=== PATIENT | male | born 1990 ===

== ENCOUNTER 2017-10-19 18:36 | Inpatient (IN) | payer MEDICAID, OTHER ==
[2017-10-19 19:05] VITALS: BMI 25.4
[2017-10-19] MEDS ORDERED: Oxycodone/Acetaminophen 5/325 mg Tab PO STA (19:49)
--- NOTE | 2017-10-19 20:08 | ED PDOC ---
Arrival/HPI - General Chief Complaint: Headache Time Seen by Provider: 10/19/17 19:21 Historian: Patient - History of Present Illness Narrative History of Present Illness (Text): 10/19/17 20:05 26 year old male, with no significant past medical history, who presents to the emergency department complaining of intermittent headache and discomfort at the top and front of the head for 1 week. Patient notes occasional dizziness. Patient denies any fever, chills, chest pain, shortness of breath, nausea, vomiting, diarrhea, urinary symptoms, back pain, neck pain, trauma/injury, or any other complaints. Time/Duration: 1 week Symptom Onset: Gradual Symptom Course: Intermittent Activities at Onset: Light Context: Home Past Medical History - Provider Review Nursing Documentation Reviewed: Yes - Cardiac Hx Cardiac Disorders: No - Pulmonary Hx Respiratory Disorders: No - Neurological Hx Neurological Disorder: No - HEENT Hx HEENT Disorder: No - Renal Hx Renal Disorder: No - Endocrine/Metabolic Hx Endocrine Disorders: No - Hematological/Oncological Hx Blood Disorders: No - Integumentary Hx Dermatological Disorder: No - Musculoskeletal/Rheumatological Hx Musculoskeletal Disorders: No - Gastrointestinal Hx Gastrointestinal Disorders: No - Genitourinary/Gynecological Hx Genitourinary Disorders: No - Psychiatric Hx Psychophysiologic Disorder: No Hx Substance Use: No Family/Social History - Physician Review Nursing Documentation Reviewed: Yes Family/Social History: Unknown Family HX Smoking Status: Never Smoked Hx Alcohol Use: No Hx Substance Use: No Allergies/Home Meds Allergies/Adverse Reactions: Allergies No Known Allergies Allergy (Verified 10/19/17 19:05) Home Medications: Home Meds Medication Instructions Recorded Confirmed No Known Home Med 10/19/17 10/19/17 Review of Systems - Physician Review All systems were reviewed & negative as marked: Yes - Review of Systems Constitutional: Normal Eyes: Normal ENT: Normal Respiratory: Normal. absent: SOB, Cough Cardiovascular: Normal. absent: Chest Pain Gastrointestinal: Normal. absent: Abdominal Pain, Diarrhea, Nausea, Vomiting Genitourinary Male: Normal. absent: Dysuria, Frequency, Hematuria, Urinary Output Changes Musculoskeletal: Normal. absent: Back Pain, Neck Pain Skin: Normal. absent: Rash Neurological: Headache, Dizziness Endocrine: Normal Hemo/Lymphatic: Normal Psychiatric: Normal Physical Exam Vital Signs Reviewed: Yes Vital Signs Temp Pulse Resp BP Pulse Ox 10/20/17 00:13 68 18 139/67 100 10/19/17 21:58 65 18 128/63 97 10/19/17 19:06 98.8 F 72 18 128/65 98 Temperature: Afebrile Blood Pressure: Normal Pulse: Regular Respiratory Rate: Normal Appearance: Positive for: Well-Appearing, Non-Toxic, Comfortable Pain Distress: None Mental Status: Positive for: Alert and Oriented X 3 - Systems Exam Head: Present: Atraumatic, Normocephalic Pupils: Present: PERRL Extroacular Muscles: Present: EOMI Conjunctiva: Present: Normal Mouth: Present: Moist Mucous Membranes Neck: Present: Normal Range of Motion. No: Meningeal Signs, MIDLINE TENDERNESS Respiratory/Chest: Present: Clear to Auscultation, Good Air Exchange. No: Respiratory Distress, Accessory Muscle Use Cardiovascular: Present: Regular Rate and Rhythm, Normal S1, S2. No: Murmurs Abdomen: No: Tenderness, Distention, Peritoneal Signs Back: Present: Normal Inspection. No: CVA Tenderness, Midline Tenderness, Paraspinal Tenderness Upper Extremity: Present: Normal Inspection. No: Cyanosis, Edema Lower Extremity: Present: Normal Inspection. No: Edema, CALF TENDERNESS Neurological: Present: GCS=15, CN II-XII Intact, Speech Normal, Motor Func Grossly Intact, Normal Sensory Function Skin: Present: Warm, Dry, Normal Color. No: Rashes Psychiatric: Present: Alert, Oriented x 3, Normal Insight, Normal Concentration Medical Decision Making ED Course and Treatment: 10/19/17 20:09 Impression: 26 year old male who presents to the emergency department complaining of intermittent headaches and discomfort for 1 week. Plan: -- CT Head -- Percocet -- Reassess and disposition Progress Notes: 10/19/17 21:58 CT Head shows: Brain and ventricles: There is a 3 x 4 x 2.7 cm cystic mass in the right cerebellum. There may be a small mural nodule. There is mass effect on the fourth ventricle with partial effacement of the fourth ventricle. There is mass effect with mild effacement of the quadrigeminal plate cistern.. No lesions are seen in the cerebellum on the left. Lateral and third ventricles are mildly prominent. There is prominence of temporal horns.. There is no supratentorial midline shift. There are no focal hemorrhages. Matthews-white differentiation is maintained Bones: Cranial vault is intact. Soft tissues: unremarkable Sinuses: There is sinusitis. Ears and mastoids: Middle ears and mastoids are unremarkable. Orbits: Orbital contents are unremarkable. 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 MRI without and with contrast suggested for more complete evaluation. EKG, Labs, and Chest X-ray ordered. 10/19/17 23:[address] Vera, who is aware and agrees with plan. Accepts pt in to hospitalist service. [facility] for brain tumor and vertigo. resident engineer notified. 10/19/17 23:15 EKG reviewed, NSR at [address]-segment elevations or depressions, no T-wave inversions, normal intervals. - Lab Interpretations Lab Results: 10/19/17 22:12 10/19/17 22:12 Lab Results 10/19/17 22:12: PT 11.2, INR 0.98, APTT 28.0 10/19/17 22:12: WBC 9.1, RBC 4.97, Hgb 15.8, Hct 44.1, MCV 88.7, MCH 31.8, MCHC 35.8, RDW 12.2, Plt Count 269, MPV 10.7 10/19/17 22:12: Sodium 143, Potassium 3.7, Chloride 104, Carbon Dioxide 26, Anion Gap 16, BUN 20, Creatinine 0.9, Est GFR ( Amer) > 60, Est GFR (Non- Af Amer) > 60, Random Glucose 110, Calcium 9.6, Total Bilirubin 0.3, AST 37, ALT 23, Alkaline Phosphatase 87, Total Protein 7.7, Albumin 4.8, Globulin 2.8, Albumin/Globulin Ratio 1.7 I have reviewed the lab results: Yes - RAD Interpretation Radiology Orders: 10/19/17 19:36 HEAD W/O CONTRAST [CT] Stat 10/19/17 21:58 CHEST PORTABLE [RAD] Stat Quality Compliance Coordinator: Radiologist - EKG Interpretation Interpreted by ED Physician: Yes Type: 12 lead EKG - Medication Orders Current Medication Orders: Acetaminophen (Tylenol 325mg Tab) 650 mg PO Q6H PRN PRN Reason: Pain, Mild (1-3) Naproxen (Anaprox Ds) 550 mg PO BID PRN PRN Reason: Pain, moderate (4-7) Ondansetron HCl (Zofran Inj) 4 mg IVP Q4H PRN PRN Reason: Nausea/Vomiting Oxycodone/Acetaminophen (Percocet 2.5/325 Mg Tab) 1 tab PO Q4H PRN PRN Reason: Pain, severe (8-10) Last Admin: 10/20/17 06:04 Dose: 1 tab Pantoprazole Sodium (Protonix Ec Tab) 40 mg PO 0600 CHAVEZ Last Admin: 10/20/17 06:04 Dose: 40 mg Discontinued Medications Oxycodone/Acetaminophen (Percocet 5/325 Mg Tab) 1 tab PO STAT STA Stop: 10/19/17 19:50 Last Admin: 10/19/17 21:00 Dose: 1 tab BANNER Pain Assessment Document 10/19/17 21:00 EQ (Rec: 10/19/17 21:00 EQ [id number]) Pain Reassessment Is this a pain reassessment? No Sleep Is patient sleeping during reassessment? No Presence of Pain Presence of Pain Yes - Scribe Statement The provider has reviewed the documentation as recorded by the Scribe Concetta Cai All medical record entries made by the Scribdequan were at my direction and personally dictated by me. I have reviewed the chart and agree that the record accurately reflects my personal performance of the history, physical exam, medical decision making, and the department course for this patient. I have also personally directed, reviewed, and agree with the discharge instructions and disposition. Disposition/Present on Arrival - Present on Arrival Any Indicators Present on Arrival: No History of DVT/PE: No History of Uncontrolled Diabetes: No Urinary Catheter: No History of Decub. Ulcer: No History Surgical Site Infection Following: None - Disposition Have Diagnosis and Disposition been Completed?: Yes Diagnosis: Cerebellar tumor, Dizziness Disposition: HOSPITALIZED Disposition Time: 23:37 Patient Plan: Admission, Observation Patient Problems: Current Active Problems Problem Status Onset Cerebellar tumor Acute Dizziness Acute Condition: STABLE
--- NOTE | 2017-10-19 21:53 | CT ---
EXAM: CT Head Without Intravenous Contrast EXAM DATE/TIME: 10/19/2017 7:36 PM CLINICAL HISTORY: 26 years old, male; Pain; Headache TECHNIQUE: Axial computed tomography images of the head/brain without intravenous contrast. All CT scans at this facility use one or more dose reduction techniques, viz.: automated exposure control; ma/kV adjustment per patient size (including targeted exams where dose is matched to indication; i.e. head); or iterative reconstruction technique. Coronal and sagittal reformatted images were created and reviewed. COMPARISON: There are no prior studies for comparison. FINDINGS: Brain and ventricles: There is a 3 x 4 x 2.7 cm cystic mass in the right cerebellum. There may be a small mural nodule. There is mass effect on the fourth ventricle with partial effacement of the fourth ventricle. There is mass effect with mild effacement of the quadrigeminal plate cistern.. No lesions are seen in the cerebellum on the left. Lateral and third ventricles are mildly prominent. There is prominence of temporal horns.. There is no supratentorial midline shift. There are no focal hemorrhages. Matthews-white differentiation is maintained Bones: Cranial vault is intact. Soft tissues: unremarkable Sinuses: There is sinusitis. Ears and mastoids: Middle ears and mastoids are unremarkable. Orbits: Orbital contents are unremarkable. 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
[2017-10-19 22:23] LABS: HEMOGLOBIN 15.8 g/dL (14.0-18.0); MEAN CELL VOLUME 88.7 fl (80.0-105.0); MEAN CORPUSCULAR HEMOGLOBIN 31.8 pg (25.0-35.0); MEAN CORPUSCULAR HGB CONC 35.8 g/dl (31.0-37.0); MEAN PLATELET VOLUME 10.7 fl (7.0-11.0); RBC 4.97 10^6/uL (3.5-6.1); RED CELL DISTRIBUTION WIDTH 12.2 % (11.5-14.5); WHITE BLOOD COUNT 9.1 10^3/ul (4.5-11.0)
[2017-10-19 22:32] LABS: ALB/GLOB RATIO 1.7 (1.1-1.8); ALBUMIN 4.8 g/dL (3.0-4.8); ALT/SGPT 23 U/L (7-56); AST/SGOT 37 U/L (17-59); BLOOD UREA NITROGEN 20 mg/dL (7-21); CALCIUM 9.6 mg/dL (8.4-10.5); GFR AFRICAN-AMERICAN > 60; GFR NON-AFRICAN AMERICAN > 60; INR 0.98 (0.93-1.08); PROTHROMBIN TIME 11.2 SECONDS (9.4-12.5)
[2017-10-19] MEDS ORDERED: Naproxen 550 mg Tab PO PRN (23:05)
[2017-10-20] MEDS: Oxycodone/Acetaminophen 2.5/325 mg Tab PO PRN ×3 (00:12→09:53)
--- NOTE | 2017-10-20 00:32 | CP.PCM.HP ---
<AlvarezAnatoliy - Last Filed: 10/20/17 01:44> History of Present Illness - History of Present Illness History of Present Illness: Mr. Brook Avitia is a 26 year old male with no significant past medical history who presents with 15 days of acute worsening of chronic headache symptoms. Patient speaks only armenian and family members at bedside provided translation. Patient reports that he has had headaches intermittently for several years with increasingly frequent episodes over the past several months. Most recently, his headache has been consistently present for the past 15 days with no response to OTC NSAID's. He has never been seen by a physician for these headaches in the past. He describes the headache as dull achy pain that extends from his posterior neck to bilateral frontotemporal regions. He endorses that during the headache he becomes dizzy but denies any LOC, changes in his vision, tinnitus, epistaxis, visual/auditory aura's, N/V or numbness/tingling/weakness of any extremity. He further denies any weight loss, fevers, chills, chest pain, SOB, abdominal pain, diarrhea, constipation, changes in urine output, bowel/bladder incontinence, parasthesias, or any skin lesions. PMH: Denies PSH: Denies Family History: Father- at the age of 23 from an unspecified brain mass Social History: Denies any tobacco, alcohol or illicit drug abuse; Does factory work; Lives in [place] with relative; Speaks armenian only Allergies: NKDA Home Medications: OTC NSAID and daily MV Present on Admission - Present on Admission Any Indicators Present on Admission: No Review of Systems - Review of Systems Review of Systems: As stated in HPI, otherwise negative Past Patient History - Infectious Disease Hx of Infectious Diseases: None - Tetanus Immunizations Tetanus Immunization: Unknown - Past Social History Smoking Status: Never Smoked - CARDIAC Hx Cardiac Disorders: No - PULMONARY Hx Respiratory Disorders: No - NEUROLOGICAL Hx Neurological Disorder: No - HEENT Hx HEENT Problems: No - RENAL Hx Chronic Kidney Disease: No - ENDOCRINE/METABOLIC Hx Endocrine Disorders: No - HEMATOLOGICAL/ONCOLOGICAL Hx Blood Disorders: No - INTEGUMENTARY Hx Dermatological Problems: No - MUSCULOSKELETAL/RHEUMATOLOGICAL Hx Musculoskeletal Disorders: No - GASTROINTESTINAL Hx Gastrointestinal Disorders: No - GENITOURINARY/GYNECOLOGICAL Hx Genitourinary Disorders: No - PSYCHIATRIC Hx Psychophysiologic Disorder: No Hx Substance Use: No - SURGICAL HISTORY Hx Surgeries: No Meds Allergies/Adverse Reactions: Allergies Allergy/AdvReac Type Severity Reaction Status Date / Time No Known Allergies Allergy Verified 10/19/17 19:05 Physical Exam - Constitutional Appears: Non-toxic, No Acute Distress - Head Exam Head Exam: ATRAUMATIC, NORMAL INSPECTION, NORMOCEPHALIC - Eye Exam Eye Exam: EOMI, Normal appearance, PERRL. absent: Conjunctival injection, Nystagmus, Periorbital swelling, Periorbital tenderness, Scleral icterus Pupil Exam: NORMAL ACCOMODATION, PERRL. absent: Fixed, Irregular, Miosis, Mydriatic, Unequal - ENT Exam ENT Exam: Mucous Membranes Moist, Normal Exam, Normal External Ear Exam, Normal Oropharynx. absent: Mucous Membranes Dry - Neck Exam Neck exam: Positive for: Full Rom, Normal Inspection. Negative for: Lymphadenopathy, Meningismus, Tenderness, Thyromegaly - Respiratory Exam Respiratory Exam: Clear to Auscultation Bilateral, NORMAL BREATHING PATTERN. absent: Accessory Muscle Use, Chest Wall Tenderness, Decreased Breath Sounds, Prolonged Expiratory Phase, Rales, Rhonchi, Wheezes, Respiratory Distress, Stridor - Cardiovascular Exam Cardiovascular Exam: REGULAR RHYTHM, RRR, +S1, +S2. absent: Bradycardia, Tachycardia, Clicks, Diastolic murmur, Gallop, Irregular Rhythm, JVD, Rubs, +S4 , Systolic Murmur - GI/Abdominal Exam GI & Abdominal Exam: Normal Bowel Sounds, Soft. absent: Bruit, Diminished Bowel Sounds, Distended, Firm, Guarding, Hernia, Hyperactive Bowel Sounds, Hypoactive Bowel Sounds, Mass, Organomegaly, Pulsatile Mass, Rebound, Rigid, Tenderness - Extremities Exam Extremities exam: Positive for: full ROM, normal capillary refill, normal inspection, pedal pulses present. Negative for: calf tenderness, joint swelling , pedal edema, tenderness - Back Exam Back exam: FULL ROM, NORMAL INSPECTION. absent: CVA tenderness (L), CVA tenderness (R), muscle spasm, paraspinal tenderness, rash noted, tenderness, vertebral tenderness - Neurological Exam Neurological exam: Alert, CN II-XII Intact, Normal Gait, Oriented x3 - Psychiatric Exam Psychiatric exam: Normal Affect, Normal Mood - Skin Skin Exam: Dry, Intact, Normal Color, Warm Results - Vital Signs Recent Vital Signs: Last Vital Signs Temp 98.8 F 10/19/17 19:06 Pulse 68 10/20/17 00:13 Resp 18 10/20/17 00:13 BP 139/67 10/20/17 00:13 Pulse Ox 100 10/20/17 00:13 - Labs Result Diagrams: 10/19/17 22:12 10/19/17 22:12 Assessment & Plan - Assessment and Plan (Free Text) Assessment: 26 year old male with no significant past medical history who presents with 15 days of acute worsening of chronic headache symptoms. 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 MRI with/without contrast pending and neurology consulted. Plan: 1.Cystic Right Cerebellar Mass -See CT Head report -MRI with/without contrast pending -Neurochecks Q4 -Seizure precautions -Neurology consulted, all recommendations appreciated 2. Headache -Tylenol 650mg PO Q6 PRN for mild headache -Naprosyn 500mg PO BID PRN for moderate headache -Percocet 2.5mg PO 1 tab Q4 PRN for severe headache GI Prophylaxis: Protonix DVT Prophylaxis: SCD Diet: Regular Patient seen and case discussed with attending, Dr. Wheat. Aimee PGY1 - Date & Time Date: 10/20/17 Time: 00:28 Decision To Admit - Pt Status Changed To: Hospital Disposition Of: Inpatient Admission - Admit Certification Admit to Inpatient:: After my assessment, the patient will require hospitalization for at least two midnights. This is because of the severity of symptoms shown, intensity of services needed, and/or the medical risk in this patient being treated as an outpatient. - . Bed Request Type: Med/Surg <Emily Wheat - Last Filed: 10/20/17 03:33> Results - Vital Signs Recent Vital Signs: Last Vital Signs Temp 98.3 F 10/20/17 00:45 Pulse 72 10/20/17 00:45 Resp 20 10/20/17 00:45 BP 126/73 10/20/17 00:45 Pulse Ox 100 10/20/17 00:18 - Labs Result Diagrams: 10/19/17 22:12 10/19/17 22:12 Attending/Attestation - Attestation I have personally seen and examined this patient.: Yes I have fully participated in the care of the patient.: Yes I have reviewed all pertinent clinical information: Yes Notes (Text): 10/20/17 03:32 Patient was seen when he was in bed # 13 in the ER. Agree with history, physical examination, assessment and plan.
[2017-10-20] MEDS ORDERED: Pantoprazole 40 mg EC Tab PO SCH (06:00)
[2017-10-20 06:49] LABS: BASO # 0.02 K/mm3 (0.0-2.0); BASO % 0.3 % (0.0-3.0); EOS # 0.5 (0.0-0.7); GRAN # 3.76 (1.4-6.5); GRAN % 48.7 % (50.0-68.0); HEMOGLOBIN 15.5 g/dL (14.0-18.0); LYMPH # 2.8 (1.2-3.4); LYMPH % 36.4 % (22.0-35.0); MEAN CELL VOLUME 89.7 fl (80.0-105.0); MEAN CORPUSCULAR HEMOGLOBIN 31.3 pg (25.0-35.0); MEAN CORPUSCULAR HGB CONC 34.9 g/dl (31.0-37.0); MONO # 0.6 (0.1-0.6); MONO % 7.6 % (1.0-6.0); RBC 4.95 10^6/uL (3.5-6.1); RED CELL DISTRIBUTION WIDTH 12.3 % (11.5-14.5); WHITE BLOOD COUNT 7.7 10^3/ul (4.5-11.0)
[2017-10-20 07:07] LABS: ALB/GLOB RATIO 1.7 (1.1-1.8); ALBUMIN 4.4 g/dL (3.0-4.8); ALT/SGPT 21 U/L (7-56); AST/SGOT 44 U/L (17-59); BLOOD UREA NITROGEN 19 mg/dL (7-21); CALCIUM 9.2 mg/dL (8.4-10.5); GFR AFRICAN-AMERICAN > 60; GFR NON-AFRICAN AMERICAN > 60
[2017-10-20 07:40] VITALS: BP 120/73; PULSE 66; RESP 18; TEMP 97.8; O2SAT 99
--- NOTE | 2017-10-20 08:43 | RAD ---
HISTORY: medical clearance COMPARISON: No prior. FINDINGS: LUNGS: No active pulmonary disease. PLEURA: No significant pleural effusion identified, no pneumothorax apparent. CARDIOVASCULAR: Normal. OSSEOUS STRUCTURES: No significant abnormalities. VISUALIZED UPPER ABDOMEN: Normal. OTHER FINDINGS: None. IMPRESSION: No active disease.
[2017-10-20] MEDS ORDERED: Gadodiamide 287 MG/ML VIAL (15ML) IV ONE (10:15)
--- NOTE | 2017-10-20 12:41 | MRI ---
PROCEDURE: MRI BRAIN WITH AND WITHOUT CONTRAST HISTORY: Cerebellar Mass COMPARISON: Comparison made with prior CT scan of the brain dated 10/19/2017 TECHNIQUE: Multiplanar, multisequence MR images of the brain were obtained with and without intravenous contrast enhancement. FINDINGS: HEMORRHAGE: No acute parenchymal, subarachnoid or extra-axial hemorrhage. No evidence hemosiderin deposition identified on gradient echo weighted sequence. DWI: No evidence of an acute or early subacute infarction seen on diffusion imaging. BRAIN PARENCHYMA: Re- demonstrated to better advantage is a relatively large round/elliptical shaped the cystic mass in the right cerebellar hemisphere that measures approximately 3.9 cm x 2.9 cm x 2.7 cm (trans x AP x cc). There is a small approximately 6.6 x 5.6 mm enhancing mural nodule along the posterior superior margin of the wall of the inner surface of the cystic component . Findings could represent hemangioblastoma, cerebellar astrocytoma or medulloblastoma. . The lesion is surrounded by a small rim of prolonged T2 signal edema. . The tumor and attendant edema exert surrounding mass effect with compression of the right cerebellar hemisphere is well as vermis and right posterolateral brainstem. There is also compression of the superior margin 4th ventricle and aqueduct of Sylvius junction with mild hydrocephalus (dilatation of the 3rd and lateral ventricles including the temporal horns). In addition, there also appears to be some very minimal prolonged T2 signal changes in the immediate periventricular white matter suggesting mild transependymal edema. . There is mild tonsillar herniation which could be secondary to mass-effect itself though the possibility of an existing Chiari 1 malformation not excluded. ENHANCEMENT: As above VENTRICLES: Mild hydrocephalus as above CRANIUM: Unremarkable. ORBITS: Orbits and contents unremarkable. PARANASAL SINUSES/MASTOIDS: . Minimal mucosal thickening right chamber sphenoid sinus VASCULAR SYSTEM: Visualized major vascular flow voids at skull base patent OTHER FINDINGS: None . IMPRESSION: Re- demonstrated is a relatively large right cerebellar cystic mass with a small intensely enhancing mural wall nodule. This tumor is of uncertain etiology though differential diagnosis would include hemangioblastoma, pilocytic astrocytoma or possibly medulloblastoma. There is mild surrounding edema and mass effect with compression of the superior 4th ventricle and aqueduct of Sylvius with mild to moderate hydrocephalus and possible early trans prominent edema. There is also herniation of the tonsils through the foramen magnum which is likely due to mass effect of the tumor however of pre-existing TR 1 malformation not excluded. Clinical correlation recommended. Note that: Hemangioblastomas are associated with von Hippel-Lindau disease. . Pilocytic astrocytomas are associated with neurofibromatosis. Clinical correlation therefore recommended.
[2017-10-20] MEDS ORDERED: Oxycodone/Acetaminophen 5/325 mg Tab PO PRN (13:30)
[2017-10-20] MEDS ORDERED: Dexamethasone 4 mg/1 ml IVP STA (13:35)
--- NOTE | 2017-10-20 13:51 | CP.PCM.CON ---
History of Present Illness - History of Present Illness History of Present Illness: 26 yr old male with 2 weeks headache, throbbing, stabbing, and new onset, increasing with postural maneuvers, now found to have a cerebellar mass with slight compression of the 4 th ventricle with mass effect. Appreciate Dr. Hassan input to transfer patient for neurosurgical intervention and post op treatment. PMH/PSH: as above FH/SH: works at [employer]. no tobacco, no etoh. All: nkda. on exam: significant for left hand dysmetria. OTherwise normal exam Past Patient History - Infectious Disease Hx of Infectious Diseases: None - Tetanus Immunizations Tetanus Immunization: Unknown - Past Social History Smoking Status: Never Smoked - CARDIAC Hx Cardiac Disorders: No - PULMONARY Hx Respiratory Disorders: No - NEUROLOGICAL Hx Neurological Disorder: No - HEENT Hx HEENT Problems: No - RENAL Hx Chronic Kidney Disease: No - ENDOCRINE/METABOLIC Hx Endocrine Disorders: No - HEMATOLOGICAL/ONCOLOGICAL Hx Blood Disorders: No - INTEGUMENTARY Hx Dermatological Problems: No - MUSCULOSKELETAL/RHEUMATOLOGICAL Hx Musculoskeletal Disorders: No - GASTROINTESTINAL Hx Gastrointestinal Disorders: No - GENITOURINARY/GYNECOLOGICAL Hx Genitourinary Disorders: No - PSYCHIATRIC Hx Psychophysiologic Disorder: No Hx Substance Use: No - SURGICAL HISTORY Hx Surgeries: No Meds Allergies/Adverse Reactions: Allergies Allergy/AdvReac Type Severity Reaction Status Date / Time No Known Allergies Allergy Verified 10/19/17 19:05 - Medications Medications: Current Medications Acetaminophen (Tylenol 325mg Tab) 650 mg PO Q6H PRN PRN Reason: Pain, Mild (1-3) Dexamethasone (Decadron Inj) 8 mg IVP BID [facility] Naproxen (Anaprox Ds) 550 mg PO BID PRN PRN Reason: Pain, moderate (4-7) Ondansetron HCl (Zofran Inj) 4 mg IVP Q4H PRN PRN Reason: Nausea/Vomiting Oxycodone/Acetaminophen (Percocet 5/325 Mg Tab) 1 tab PO Q4H PRN PRN Reason: Pain, moderate (4-7) Stop: 10/23/17 13:31 Pantoprazole Sodium (Protonix Ec Tab) 40 mg PO 0600 [facility] Last Admin: 10/20/17 06:04 Dose: 40 mg Results - Vital Signs Recent Vital Signs: Last Vital Signs Temp 97.8 F 06/03/18 07:39 Pulse 66 10/20/17 07:39 Resp 18 10/20/17 07:39 BP 120/73 10/20/17 07:39 Pulse Ox 99 10/20/17 07:39 - Labs Result Diagrams: 10/20/17 06:30 10/20/17 06:30 Labs: Laboratory Results - last 24 hr 10/20/17 10/20/17 06:30 06:30 WBC 7.7 RBC 4.95 Hgb 15.5 Hct 44.4 MCV 89.7 MCH 31.3 MCHC 34.9 RDW 12.3 Plt Count 260 MPV 11.0 Gran % 48.7 L Lymph % (Auto) 36.4 H Seneca % (Auto) 7.6 H Eos % (Auto) 7.0 H Baso % (Auto) 0.3 Gran # 3.76 Lymph # (Auto) 2.8 [place] # (Auto) 0.6 Eos # (Auto) 0.5 Baso # (Auto) 0.02 Sodium 143 Potassium 4.0 Chloride 103 Carbon Dioxide 30 Anion Gap 15 BUN 19 Creatinine 1.1 Est GFR ( Amer) > 60 Est GFR (Non-Af Amer) > 60 Random Glucose 98 Calcium 9.2 Total Bilirubin 0.3 AST 44 ALT 21 Alkaline Phosphatase 76 Total Protein 7.1 Albumin 4.4 Globulin 2.7 Albumin/Globulin Ratio 1.7 Assessment & Plan - Assessment and Plan (Free Text) Assessment: 26 yr old male with cerebellar mass, most likey hemangioblastoma or ependymoma as differential who will need surgical intervention. Plan; 1. Start decadron 8mg IV q 8 hours. 2. GI prophylaxis 3. Transfer to [facility] Thank you Dr. hernandez
--- NOTE | 2017-10-20 14:52 | CP.PCM.DIS ---
<Anatoly Muhammad - Last Filed: 10/20/17 14:36> Provider - Provider Date of Admission: 10/19/17 23:28 Attending physician: Gregory Johns MD Primary care physician: NO PRIMARY CARE PROVIDER Consults: Neuro - [facility] Neuro Surg - [facility] [place] ICU - Bey Time Spent in preparation of Discharge (in minutes): 65 Hospital Course - Lab Results Lab Results: Most Recent Lab Values WBC 7.7 10^3/ul (4.5-11.0) 10/20/17 06:30 RBC 4.95 10^6/uL (3.5-6.1) 10/20/17 06:30 Hgb 15.5 g/dL (14.0-18.0) 10/20/17 06:30 Hct 44.4 % (42.0-52.0) 10/20/17 06:30 MCV 89.7 fl (80.0-105.0) 10/20/17 06:30 MCH 31.3 pg (25.0-35.0) 10/20/17 06:30 MCHC 34.9 g/dl (31.0-37.0) 10/20/17 06:30 RDW 12.3 % (11.5-14.5) 10/20/17 06:30 Plt Count 260 10^3/uL (120.0-450.0) 10/20/17 06:30 MPV 11.0 fl (7.0-11.0) 10/20/17 06:30 Gran % 48.7 % (50.0-68.0) L 10/20/17 06:30 Lymph % (Auto) 36.4 % (22.0-35.0) H 10/20/17 06:30 Sunflower % (Auto) 7.6 % (1.0-6.0) H 10/20/17 06:30 Eos % (Auto) 7.0 % (1.5-5.0) H 10/20/17 06:30 Baso % (Auto) 0.3 % (0.0-3.0) 10/20/17 06:30 Gran # 3.76 (1.4-6.5) 10/20/17 06:30 Lymph # (Auto) 2.8 (1.2-3.4) 10/20/17 06:30 Sunflower # (Auto) 0.6 (0.1-0.6) 10/20/17 06:30 Eos # (Auto) 0.5 (0.0-0.7) 10/20/17 06:30 Baso # (Auto) 0.02 K/mm3 (0.0-2.0) 10/20/17 06:30 PT 11.2 SECONDS (9.4-12.5) 10/19/17 22:12 INR 0.98 (0.93-1.08) 10/19/17 22:12 APTT 28.0 Seconds (25.1-36.5) 10/19/17 22:12 Sodium 143 mmol/L (132-148) 10/20/17 06:30 Potassium 4.0 mmol/L (3.6-5.0) 10/20/17 06:30 Chloride 103 mmol/L (98-107) 10/20/17 06:30 Carbon Dioxide 30 mmol/L (21-33) 10/20/17 06:30 Anion Gap 15 (10-20) 10/20/17 06:30 BUN 19 mg/dL (7-21) 10/20/17 06:30 Creatinine 1.1 mg/dl (0.8-1.5) 10/20/17 06:30 Est GFR ( Amer) > 60 10/20/17 06:30 Est GFR (Non-Af Amer) > 60 10/20/17 06:30 Random Glucose 98 mg/dL (70-110) 10/20/17 06:30 Calcium 9.2 mg/dL (8.4-10.5) 10/20/17 06:30 Total Bilirubin 0.3 mg/dL (0.2-1.3) 10/20/17 06:30 AST 44 U/L (17-59) 10/20/17 06:30 ALT 21 U/L (7-56) 10/20/17 06:30 Alkaline Phosphatase 76 U/L (38-126) 10/20/17 06:30 Total Protein 7.1 g/dL (5.8-8.3) 10/20/17 06:30 Albumin 4.4 g/dL (3.0-4.8) 10/20/17 06:30 Globulin 2.7 gm/dL 10/20/17 06:30 Albumin/Globulin Ratio 1.7 (1.1-1.8) 10/20/17 06:30 - Hospital Course Hospital Course: As per admission documentation Mr. Brook Avitia is a 26 year old male with no significant past medical history who presents with 15 days of acute worsening of chronic headache symptoms. Patient speaks only wallisian and family members at bedside provided translation. Patient reports that he has had headaches intermittently for several years with increasingly frequent episodes over the past several months. Most recently, his headache has been consistently present for the past 15 days with no response to OTC NSAID's. He has never been seen by a physician for these headaches in the past. He describes the headache as dull achy pain that extends from his posterior neck to bilateral frontotemporal regions. He endorses that during the headache he becomes dizzy but denies any LOC, changes in his vision, tinnitus, epistaxis, visual/auditory aura's, N/V or numbness/tingling/weakness of any extremity. He further denies any weight loss, fevers, chills, chest pain, SOB, abdominal pain, diarrhea, constipation, changes in urine output, bowel/bladder incontinence, parasthesias, or any skin lesions. Hospital Course 26 year old male with no significant past medical history who presented with 15 days of acute worsening of chronic headache symptoms. 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 Neurology, Dr. Rivera, and Neuro Surg, Dr. Hassan, were consulted. Brain MRI w/ and w/o contrast - Re- demonstrated is a relatively large right cerebellar cystic mass with a small intensely enhancing mural wall nodule. This tumor is of uncertain etiology though differential diagnosis would include hemangioblastoma, pilocytic astrocytoma or possibly medulloblastoma. There is mild surrounding edema and mass effect with compression of the superior 4th ventricle and aqueduct of Sylvius with mild to moderate hydrocephalus and possible early trans prominent edema. There is also herniation of the tonsils through the foramen magnum which is likely due to mass effect of the tumor however of pre-existing TR 1 malformation not excluded. As a result of the MRI results, the case was discuss between Dr. Johns, Dr. Rivera and Dr. Hassan. It was decided that the patient needed to be transferred. Dr. Huerta and ICU team were consulted for closer observation while a transfer plan was put in place. A decision was made quickly to transfer patient to [facility]. Accepting physician is Dr. Monterroso. Patient's family member at [facility] translated for patient. Patient and family agreed to transfer. Patient was never transferred to ICU because he was quickly accepted to [place] and transfer was arranged accordingly. Patient is resting comfortably in bed but complaining of severe headache 8-9 out of 10 located on the left posterior portion of his head. Patient given a percocet to attempt to decrease the pain in addition to 8mg IVP of Decadron. Patient transferred to [facility] on 10/19 for further treatment and management not accessible at [facility] Discharge Exam - Head Exam Head Exam: ATRAUMATIC, NORMAL INSPECTION, NORMOCEPHALIC - Eye Exam Eye Exam: EOMI, Normal appearance, PERRL Pupil Exam: NORMAL ACCOMODATION - ENT Exam ENT Exam: Mucous Membranes Moist - Respiratory Exam Respiratory Exam: Clear to PA & Lateral, NORMAL BREATHING PATTERN. absent: Accessory Muscle Use, Rales, Rhonchi, Wheezes, Respiratory Distress - Cardiovascular Exam Cardiovascular Exam: REGULAR RHYTHM, +S1, +S2 - GI/Abdominal Exam GI & Abdominal Exam: Normal Bowel Sounds, Soft. absent: Distended, Firm, Guarding, Rigid, Tenderness - Extremities Exam Extremities exam: normal inspection - Neurological Exam Neurological exam: Alert, CN II-XII Intact, Oriented x3 Additional comments: Denies vision changes. UE and LE 5/5 strength b/l neuro exam unremarkable - Psychiatric Exam Psychiatric exam: Normal Affect, Normal Mood - Skin Skin Exam: Dry, Warm Discharge Plan - Follow Up Plan Condition: STABLE Disposition: DIS[facility] Referrals: PCP,NO [Primary Care Provider] - <Gregory Johns - Last Filed: 10/21/17 07:28> Provider - Provider Date of Admission: 10/19/17 23:28 Attending physician: Gregory Johns MD Primary care physician: NO PRIMARY CARE PROVIDER Hospital Course - Lab Results Lab Results: Most Recent Lab Values WBC 7.7 10^3/ul (4.5-11.0) 10/20/17 06:30 RBC 4.95 10^6/uL (3.5-6.1) 10/20/17 06:30 Hgb 15.5 g/dL (14.0-18.0) 10/20/17 06:30 Hct 44.4 % (42.0-52.0) 10/20/17 06:30 MCV 89.7 fl (80.0-105.0) 10/20/17 06:30 MCH 31.3 pg (25.0-35.0) 10/20/17 06:30 MCHC 34.9 g/dl (31.0-37.0) 10/20/17 06:30 RDW 12.3 % (11.5-14.5) 10/20/17 06:30 Plt Count 260 10^3/uL (120.0-450.0) 10/20/17 06:30 MPV 11.0 fl (7.0-11.0) 10/20/17 06:30 Gran % 48.7 % (50.0-68.0) L 10/20/17 06:30 Lymph % (Auto) 36.4 % (22.0-35.0) H 10/20/17 06:30 Sunflower % (Auto) 7.6 % (1.0-6.0) H 10/20/17 06:30 Eos % (Auto) 7.0 % (1.5-5.0) H 10/20/17 06:30 Baso % (Auto) 0.3 % (0.0-3.0) 10/20/17 06:30 Gran # 3.76 (1.4-6.5) 10/20/17 06:30 Lymph # (Auto) 2.8 (1.2-3.4) 10/20/17 06:30 Sunflower # (Auto) 0.6 (0.1-0.6) 10/20/17 06:30 Eos # (Auto) 0.5 (0.0-0.7) 10/20/17 06:30 Baso # (Auto) 0.02 K/mm3 (0.0-2.0) 10/20/17 06:30 PT 11.2 SECONDS (9.4-12.5) 10/19/17 22:12 INR 0.98 (0.93-1.08) 10/19/17 22:12 APTT 28.0 Seconds (25.1-36.5) 10/19/17 22:12 Sodium 143 mmol/L (132-148) 10/20/17 06:30 Potassium 4.0 mmol/L (3.6-5.0) 10/20/17 06:30 Chloride 103 mmol/L (98-107) 10/20/17 06:30 Carbon Dioxide 30 mmol/L (21-33) 10/20/17 06:30 Anion Gap 15 (10-20) 10/20/17 06:30 BUN 19 mg/dL (7-21) 10/20/17 06:30 Creatinine 1.1 mg/dl (0.8-1.5) 10/20/17 06:30 Est GFR ( Amer) > 60 10/20/17 06:30 Est GFR (Non-Af Amer) > 60 10/20/17 06:30 Random Glucose 98 mg/dL (70-110) 10/20/17 06:30 Calcium 9.2 mg/dL (8.4-10.5) 10/20/17 06:30 Total Bilirubin 0.3 mg/dL (0.2-1.3) 10/20/17 06:30 AST 44 U/L (17-59) 10/20/17 06:30 ALT 21 U/L (7-56) 10/20/17 06:30 Alkaline Phosphatase 76 U/L (38-126) 10/20/17 06:30 Total Protein 7.1 g/dL (5.8-8.3) 10/20/17 06:30 Albumin 4.4 g/dL (3.0-4.8) 10/20/17 06:30 Globulin 2.7 gm/dL 10/20/17 06:30 Albumin/Globulin Ratio 1.7 (1.1-1.8) 10/20/17 06:30 Attending/Attestation - Attestation I have personally seen and examined this patient.: Yes I have fully participated in the care of the patient.: Yes I have reviewed all pertinent clinical information, including history, physical exam and plan: Yes Notes (Text): 10/20/17 15:27 Attending note; Patient seen and examined with resident. Patient is a 26-year-old male from [place] is admitted with recurrent headaches. The patient recently moved to [facility] about 6 months ago. Patient used to have headaches before. Currently his headache is severe diffuse and with postural changes. Denies any vision problem. CT head shows right cerebellar mass. 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 There is mild surrounding edema with mass effect with compression of the superior fourth ventricle and aqueduct of sylvius mild to moderate hydrocephalus. Case discussed with neurology in detail. Patient was evaluated by neurosurgery. S[facility]ed transfer [facility] for higher level of care. Case discussed with neurosurgical PA at [facility]. Patient is accepted to [facility] neurosurgery unit/Dr. Monterroso. Case discussed with transfer center in detail. Patient eas transferred to [place] today. Diagnosis; Cerebellar mass with edema. Headaches
--- NOTE | 2017-10-20 15:41 | CARD ---
APPROVED REPORT EKG Measurement Heart [id number] <Conclusion> Normal sinus rhythm Normal ECG
[2017-10-20] MEDS ORDERED: Dexamethasone 4 mg/1 ml IVP SCH (18:00)
--- NOTE | 2017-10-20 20:43 | CON ---
DATE: HISTORY OF PRESENT ILLNESS: This is a 26-year-old male admitted yesterday with increasing headaches. He reports that he has had headaches for a longstanding period of time. He reports that his father from the brain tumor. He does not know anything more about that. He has no other neurologic complaints. No complaints of double vision, blurred vision, hearing impairment, dizziness, weakness, sensory loss. ALLERGIES: HE HAS NO ALLERGIES. SOCIAL HISTORY: He denies smoking or drinking. PHYSICAL EXAMINATION: GENERAL: Today, finds him fully awake, alert, oriented. NEUROLOGIC: His pupils are equal, his EOMs are full, his face is symmetric. His motor exam is 5/5. His sensory exam is completely intact. He has normal gait. He has no dysmetria to rapid alternating movements . He has no Romberg sign. He presents with a CAT scan of the head that is noncontrast that demonstrates a cystic lesion in the posterior right cerebellar hemisphere. 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 He requires a contrasted MRI to identify whether or not there is a hyperintense nodule present. That will further help with the diagnosis. We will reevaluate him after the study is complete. Abraham Hassan MD
== END 2017-10-20 16:48 | disposition short-term general hospital (02) | DRG 54 ==
LOC: ED 18:36 → ERH 23:28 → 3RNO 10-20 00:45
PROVIDERS: ADMIT Internal Medicine; ATTEND Internal Medicine
DX: D43.1 Neoplasm of uncertain behavior of brain, infratentorial (principal); G93.5 Compression of brain; G91.9 Hydrocephalus, unspecified; Z80.8 Family history of malignant neoplasm of other organs or systems